=== PATIENT | female | born 1995 | race Two or more races ===

== ENCOUNTER 2019-12-06 21:16 | Emergency (ER) | payer MEDICAID ==
[~2019-12-06] VITALS: Ht 149.9 cm; Wt 69.9 kg
--- NOTE | 2019-12-06 21:30 | NUR ---
ED Nurse Note: Patient walked in from home d/t headache 03/16 constant onset 1 month, per pt she saw her primary MD and was told to take Tylenol, and has been working but recently unable to relieve headache. Patient aao x 4 and ambulatory with steady gait. Patient states headache started at temples and radiates to posterior lower head. No acute distress noted during assessment.
[2019-12-06 21:32] VITALS: BP 144/91
--- NOTE | 2019-12-06 21:35 | NUR ---
ED Nurse Note: ERMD at bedside
[2019-12-06] MEDS ORDERED: Metoclopramide 10mg/2ml Inj IVP ONE (21:45)
[2019-12-06] MEDS ORDERED: DiphenhydrAMINE 50mg/ml Inj IVP ONE (21:45)
--- NOTE | 2019-12-06 21:46 | Emergency Room Report ---
History of Present Illness General Chief Complaint: Headache Source: Patient Present Illness HPI Patient presents with 1 month of headaches. She feels that frontal mid and posterior head. Throbbing and fairly constant. It has been worse when she has had difficulty with low blood sugars. The patient is a insulin-dependent diabetic. Recently her insulin requirements have dropped. The worst the head ache was when she had a glucose of 66, She also feels nauseated and denies vomiting. She has been eating less and losing some weight. She denies fevers or chills. She causes a "migraine". She has never been diagnosed with migraines in the past. She denies aura. Prior to a month ago she never had headaches like this before. Headache is worsened in the last 24 to 48 hours. She rates the pain 10/10. There was no acute onset of headache or thunderclap event. No sore throat, chest pain, palpitations, diarrhea, dysuria, abdominal pain, shortness of breath, joint pain, rashes, depression, anxiety, visual changes, dizziness. Last menstruation was normal. There is no family history of aneurysms or subarachnoid hemorrhage. She denies hypertension. She denies meningismus. There is no focal weakness or numbness. She denies recent head trauma. Allergies: Coded Allergies: No Known Allergies (Unverified , 11/02/15) COVID-19 Screening Contact w/high risk pt: No Recent Travel to affected area: No Experienced COVID-19 symptoms?: No COVID-19 Testing performed [employer]OO[employer] SERVICE TECHNICIAN: No Patient History Past Medical History: see triage record Social History: Reports: drug use - THC; Denies: smoking, alcohol use Social History Narrative has 8 yo at home. Lives with Brother and father Last Menstrual Period: 11/15/2019 Now: No Reviewed Nursing Documentation: PMH: Agreed; PSxH: Agreed Nursing Documentation-PMH Hx Diabetes: Yes Review of Systems All Other Systems: negative except mentioned in HPI Physical Exam Vital Signs Date Time Temp Pulse Resp B/P (MAP) Pulse Ox O2 Delivery O2 Flow Rate FiO2 12/06/19 21:20 98.8 87 19 139/91 (107) 97 Room Air Sp02 EP Interpretation: reviewed, normal General Appearance: well appearing, no apparent distress, GCS 15, non-toxic Head: normocephalic Eyes: bilateral eye normal inspection, bilateral eye PERRL, bilateral eye EOMI ENT: moist mucus membranes Neck: full range of motion, supple, no meningismus Respiratory: lungs clear, normal breath sounds Cardiovascular #1: regular rate, rhythm Cardiovascular #2: 2+ radial (R) Gastrointestinal: normal inspection, normal bowel sounds, non-distended Genitourinary: no CVA tenderness Musculoskeletal: back normal, normal range of motion, gait/station normal Neurologic: alert, motor strength/tone normal, sample box maker III-XII nml as tested, DTRs symmetric, oriented x3, sensory intact, cerebellar normal, speech normal Psychiatric: mood/affect normal Skin: no rash, warm/dry Medical Decision Making Diagnostic Impression: Primary Impression: Cephalgia Qualified Codes: G44.89 - Other headache syndrome Additional Impressions: UTI (urinary tract infection) Qualified Codes: N30.00 - Acute cystitis without hematuria Hypoglycemic episode in patient with diabetes mellitus ER Course Patient has never had migraines presents with migraine". Patient is a diabetic and has had decreased insulin requirements and episodes of hypoglycemia. Differential includes migraine, intracerebral bleed, tension headache amongst others. Given her history the possibility of hypoglycemic episodes causing headaches is very likely. Patient needs evaluation with CT of the head, and labs. Patient will receive a dose of metoclopramide and Benadryl. Suspicion for COVID-[address] the head normal. Labs for minimal leukocytosis, remarkable blood sugar 116 and pyuria. Tox screen positive for THC. Rocephin administered IV. Patient still complaining about headache and Toradol administered. Improvement in pain. Discussed the significance of hypoglycemic episodes. Discussed treatment plan with patient including decreasing doses of her insulin. Discussed the importance of follow-up with her private physician. No medical emergency at this time. Patient stable for outpatient observation and treatment. Laboratory Tests Test 12/06/19 21:44 White Blood Count 11.2 K/UL (4.8-10.8) H Red Blood Count 4.98 M/UL (4.20-5.40) Hemoglobin 13.6 G/DL (12.0-16.0) Hematocrit 42.3 % (37.0-47.0) Mean Corpuscular Volume 85 FL (80-99) Mean Corpuscular Hemoglobin 27.3 PG (27.0-31.0) Mean Corpuscular Hemoglobin Concent 32.2 G/DL (32.0-36.0) Red Cell Distribution Width 14.9 % (11.6-14.8) H Platelet Count 369 K/UL (150-450) Mean Platelet Volume 6.9 FL (6.5-10.1) Neutrophils (%) (Auto) 57.5 % (45.0-75.0) Lymphocytes (%) (Auto) 35.1 % (20.0-45.0) Monocytes (%) (Auto) 5.6 % (1.0-10.0) Eosinophils (%) (Auto) 0.9 % (0.0-3.0) Basophils (%) (Auto) 0.9 % (0.0-2.0) Urine Color Yellow Urine Appearance Slightly cloudy Urine pH 5 (4.5-8.0) Urine Specific [place] 1.030 (1.005-1.035) Urine Protein 2+ (NEGATIVE) H Urine Glucose (UA) 2+ (NEGATIVE) H Urine Ketones 1+ (NEGATIVE) H Urine Blood 1+ (NEGATIVE) H Urine Nitrite Negative (NEGATIVE) Urine Bilirubin Negative (NEGATIVE) Urine Urobilinogen Normal MG/DL (0.0-1.0) Urine Leukocyte Esterase 3+ (NEGATIVE) H Urine RBC 2-4 /HPF (0 - 2) H Urine WBC 15-20 /HPF (0 - 2) H Urine Squamous Epithelial Cells Many /LPF (NONE/OCC) H Urine Bacteria Many /HPF (NONE) H Urine HCG, Qualitative Negative (NEGATIVE) Sodium Level 141 MMOL/L (136-145) Potassium Level 3.5 MMOL/L (3.5-5.1) Chloride Level 104 MMOL/L (98-107) Carbon Dioxide Level 26 MMOL/L (21-32) Anion Gap 11 mmol/L (5-15) Blood Urea Nitrogen 8 mg/dL (7-18) Creatinine 0.7 MG/DL (0.55-1.30) Estimated Glomerular Filtration Rate > 60 mL/min (>60) Glucose Level 116 MG/DL (74-106) H Calcium Level 9.2 MG/DL (8.5-10.1) Total Bilirubin 0.1 MG/DL (0.2-1.0) L Aspartate Amino Transferase (AST) 23 U/L (15-37) Alanine Aminotransferase (ALT) 58 U/L (12-78) Alkaline Phosphatase 69 U/L (46-116) Total Creatine Kinase 35 U/L (26-308) Troponin I 0.000 ng/mL (0.000-0.056) C-Reactive Protein, Quantitative 0.7 mg/dL (0.00-0.90) Total Protein 7.7 G/DL (6.4-8.2) Albumin 4.3 G/DL (3.4-5.0) Globulin 3.4 g/dL Albumin/Globulin Ratio 1.3 (1.0-2.7) Urine Opiates Screen Negative (NEGATIVE) Urine Barbiturates Screen Negative (NEGATIVE) Phencyclidine (PCP) Screen Negative (NEGATIVE) Urine Amphetamines Screen Negative (NEGATIVE) Urine Benzodiazepines Screen Negative (NEGATIVE) Urine Cocaine Screen Negative (NEGATIVE) Urine Marijuana (THC) Screen Positive (NEGATIVE) H CT/MRI/US Diagnostic Results CT/MRI/US Diagnostic Results : Imaging Test Ordered: Head Impression No acute intracranial findings Last Vital Signs Date Time Temp Pulse Resp B/P (MAP) Pulse Ox O2 Delivery O2 Flow Rate FiO2 12/06/19 23:22 98.5 95 18 142/87 97 Room Air Status: improved Disposition: HOME, SELF-CARE Condition: Improved Scripts Nitrofurantoin Monohyd/M-Cryst* (MACROBID 100 MG*) 100 Mg Capsule 100 MG ORAL EVERY 12 HOURS, #14 CAP Prov: Matthew Portillo MD 12/06/19 Hydrocodone Bit/Acetaminophen 5-325* (NORCO 5-325 TABLET*) 1 Each Tablet 1 TAB ORAL Q6H PRN for FOR PAIN, #6 TAB 0 Refills Prov: Matthew Portillo MD 12/06/19 Ondansetron Odt* (ZOFRAN ODT*) 4 Mg Tab.rapdis 4 MG BC EVERY 8 HOURS, #10 TAB 0 Refills Prov: Matthew Portillo MD 12/06/19 Matthew Portillo MD Dec 06, 2019 21:46
--- NOTE | 2019-12-06 22:01 | NUR ---
ED Nurse Note: Patient taken to CT in stable condition
--- NOTE | 2019-12-06 22:05 | NUR ---
ED Nurse Note: Patient returned from CT in stable condition.
[2019-12-06 22:06] LABS: BILIRUBIN, URINE NEGATIVE (NEGATIVE); GLUCOSE, URINE (UA) 2+ (NEGATIVE); KETONES,URINE 1+ (NEGATIVE); LEUKOCYTE ESTERASE ,URINE 3+ (NEGATIVE); NITRITE,URINE NEGATIVE (NEGATIVE); PH,URINE 5 (4.5-8.0); PROTEIN,URINE 2+ (NEGATIVE); UROBILINOGEN,URINE NORMAL MG/DL (0.0-1.0)
[2019-12-06 22:11] LABS: COLOR,URINE YELLOW
[2019-12-06 22:12] LABS: APPEARANCE,URINE SLIGHTLY CLOUDY; BASOPHILS % (AUTO) 0.9 % (0.0-2.0); EOSINOPHILS % (AUTO) 0.9 % (0.0-3.0); HEMATOCRIT 42.3 % (37.0-47.0); HEMOGLOBIN 13.6 G/DL (12.0-16.0); LYMPHOCYTES % (AUTO) 35.1 % (20.0-45.0); MEAN CORPUSCULAR VOLUME 85 FL (80-99); MONOCYTES % (AUTO) 5.6 % (1.0-10.0); NEUTROPHILS % (AUTO) 57.5 % (45.0-75.0); PLATELET COUNT 369 K/UL (150-450); RED BLOOD COUNT 4.98 M/UL (4.20-5.40); RED CELL DISTRIBUTION WIDTH 14.9 % (11.6-14.8); WHITE BLOOD COUNT 11.2 K/UL (4.8-10.8)
[2019-12-06 22:16] LABS: ANION GAP 11 mmol/L (5-15); BLOOD UREA NITROGEN 8 mg/dL (7-18); CALCIUM 9.2 MG/DL (8.5-10.1); CARBON DIOXIDE 26 MMOL/L (21-32); CHLORIDE 104 MMOL/L (98-107); CREATININE 0.7 MG/DL (0.55-1.30); POTASSIUM 3.5 MMOL/L (3.5-5.1); SODIUM 141 MMOL/L (136-145)
--- NOTE | 2019-12-06 22:17 | Diagnostic Imaging Report ---
CT abdomen pelvis without contrast History: Pain, headache Technique: Axial noncontrast head CT. CTDI is 53.4 mGy and DLP is 81.4 mGy-cm. Technique more: One or more of the following dose reduction techniques were used: automated exposure control, adjustment of the mA and/or kV according to patient size, use of iterative reconstruction technique. Comparison: None Findings: Castillo-white matter differentiation is seen to be normal. Ventricles, extra-axial CSF spaces are seen to be unremarkable. No acute intracranial hemorrhage mass-effect or edema. Paranasal sinuses, mastoid air cells are clear. Impression: 1. No acute intracranial finding.
[2019-12-06 22:21] LABS: ALANINE AMINOTRANSFERASE 58 U/L (12-78); ALBUMIN 4.3 G/DL (3.4-5.0); ALBUMIN/GLOBULIN RATIO 1.3 (1.0-2.7); ALKALINE PHOSPHATASE 69 U/L (46-116); ASPARTATE AMINO TRANSFERASE 23 U/L (15-37); BILIRUBIN,TOTAL 0.1 MG/DL (0.2-1.0); CREATINE KINASE 35 U/L (26-308)
[2019-12-06] MEDS ORDERED: Ketorolac 30mg Inj IV ONE (22:45)
[2019-12-06] MEDS ORDERED: cefTRIAXone 1 GM in NS 55 ML IVPB ONE (22:45)
[2019-12-06] MEDS ORDERED: NITROFURANTOIN100 M2 ORAL (23:01)
[2019-12-06] MEDS ORDERED: ONDANSETRON ODT4 MG BC (23:01)
[2019-12-06] MEDS ORDERED: NORCO 5-325 TA1 EAC1 ORAL (23:01)
[2019-12-06 23:22] VITALS: BP 142/87
--- NOTE | 2019-12-06 23:22 | NUR ---
ER DISCHARGE NOTE: Patient is cleared to be discharged per ERMD, pt is aox4, on room air, with stable vital signs. pt was given dc and prescription instructions, pt was able to verbalize understanding, pt id band and iv site removed intact without complications. pt is able to ambulate with steady gait. pt took all belongings. pt stable upon discharge.
== END 2019-12-06 23:22 | disposition home or self-care (01) ==
LOC: EMR 21:55
DX: G44.89 Other headache syndrome (principal); N30.00 Acute cystitis without hematuria; E11.65 Type 2 diabetes mellitus with hyperglycemia; F12.90 Cannabis use, unspecified, uncomplicated; D72.829 Elevated white blood cell count, unspecified
CPT/HCPCS: 36415; 70450; 80053; 80307; 81003; 81025; 82550; 84484; 85025; 86140; 87086; 96365; 96375; J0696; J1200; J1885; J2765; Z7502; 99284